=== PATIENT | female | born 1985 | race Asian ===

== ENCOUNTER 2016-12-28 05:43 | Emergency (ER) | payer OTHER ==
[~2016-12-28] VITALS: Ht 162.6 cm; Wt 61.7 kg
[2016-12-28 06:57] VITALS: BP 109/72
== END 2016-12-28 06:57 | disposition home or self-care (01) ==
LOC: ED 05:43
DX: J03.90 Acute tonsillitis, unspecified (principal)

== ENCOUNTER 2018-04-05 20:48 | Emergency (ER) | payer OTHER ==
[~2018-04-05] VITALS: Ht 162.6 cm; Wt 67.1 kg
[2018-04-05 20:49] VITALS: Ht 162.6 cm; Wt 67.1 kg
[2018-04-05 23:10] VITALS: BP 139/71
== END 2018-04-05 23:10 | disposition home or self-care (01) ==
LOC: ED 20:48
DX: S09.8XXA Other specified injuries of head, initial encounter (principal); G43.909 Migraine, unspecified, not intractable, without status migrainosus; V48.6XXA Car passenger injured in noncollision transport accident in traffic accident, initial encounter; Y93.89 Activity, other specified; Y92.488 Other paved roadways as the place of occurrence of the external cause; Y99.8 Other external cause status